=== PATIENT | male | born 1925 | race Caucasian/White ===

== ENCOUNTER 2016-07-31 00:30 | Emergency (ER) | payer MEDICARE, OTHER ==
[2016-07-31 00:55] LABS: ABSOLUTE NEUTROPHIL COUNT 2.2 K/mm3 (1.8-7.7); BASO % 0.6 % (0.2-1.0); EOS # 0.1 (0.0-0.5); EOS % 3.2 % (0.9-2.9); HEMATOCRIT 33.3 % (32.0-52.0); IMM NEUT% 0.3 % (0-1); LYMPH # 0.4 (1.0-4.8); MEAN CELL VOLUME 96.2 fl (80.0-94.0); MEAN CORPUSCULAR HEMOGLOBIN 31.8 pg (27.0-31.0); MEAN PLATELET VOLUME 9.3 fl (7.4-10.4); MONO # 0.5 (0.0-0.8); MONO % 14.6 % (4-12); NEUT % 68.3 % (43-75); PLATELET COUNT 110 K/mm3 (130-400); RED CELL DISTRIBUTION WIDTH 15.9 % (11.5-14.5)
[2016-07-31 01:20] LABS: TROPONIN I 0.03 ng/ml (0.0-0.06)
[2016-07-31 01:24] LABS: CKMB ISOENZYME 2.2 ng/ml (0.6-6.3)
[2016-07-31] MEDS ORDERED: DILTIAZEM HCL 5 MG/ML 5ML VIAL IV ONE (01:31)
[2016-07-31 02:37] LABS: SPECIFIC GRAVITY 1.015 (1.001-1.030); URINE APPEARANCE CLEAR; URINE BILIRUBIN NEGATIVE (NEGATIVE); URINE BLOOD NEGATIVE (NEGATIVE); URINE COLOR YELLOW; URINE GLUCOSE (UA) NEGATIVE (NEGATIVE); URINE LEUKOCYTE ESTERASE NEGATIVE (NEGATIVE); URINE NITRITE NEGATIVE (NEGATIVE); URINE PROTEIN NEGATIVE (NEGATIVE); URINE UROBILINOGEN NORMAL (0-1 mg/dl)
[2016-07-31 18:41] LABS: ALB/GLOB RATIO 1.1 (>1.0); CALCIUM 8.7 mg/dL (8.6-10.3)
== END 2016-07-31 05:09 | disposition home or self-care (01) ==
LOC: ED 00:30
DX: R42 Dizziness and giddiness (principal); I48.92 Unspecified atrial flutter; I50.9 Heart failure, unspecified; I10 Essential (primary) hypertension; Z79.01 Long term (current) use of anticoagulants

== ENCOUNTER 2016-09-12 10:40 | Inpatient (IN) | payer MEDICARE, OTHER ==
[2016-09-12] MEDS ORDERED: IOPAMIDOL 370 (76%) 100 ML VIAL IV ONE (10:41)
[2016-09-12] MEDS ORDERED: ONDANSETRON 4 MG/2ML 2 ML VIAL ONE (11:53)
[2016-09-12] MEDS ORDERED: SODIUM CHLORIDE 0.9% 500 ML ONE ×2 (11:53→13:31)
[2016-09-12 12:43] LABS: ABSOLUTE NEUTROPHIL COUNT 3.3 K/mm3 (1.8-7.7); BASO % 0.2 % (0.2-1.0); EOS % 0.7 % (0.9-2.9); HEMATOCRIT 33.4 % (32.0-52.0); HEMOGLOBIN 11.3 gm/l (14.0-18.0); LYMPH # 0.5 (1.0-4.8); MEAN CELL VOLUME 98.8 fl (80.0-94.0); MEAN CORPUSCULAR HEMOGLOBIN 33.4 pg (27.0-31.0); MEAN CORPUSCULAR HGB CONC 33.8 g/dl (33.0-37.0); MEAN PLATELET VOLUME 9.4 fl (7.4-10.4); MONO # 0.5 (0.0-0.8); MONO % 10.5 % (4-12); NEUT % 77.6 % (43-75); PLATELET COUNT 123 K/mm3 (130-400); RED CELL DISTRIBUTION WIDTH 15.7 % (11.5-14.5)
[2016-09-12 12:51] LABS: ALB/GLOB RATIO 1.1 (>1.0); ALBUMIN 3.6 gm/dL (3.5-5.7); CALCIUM 8.5 mg/dL (8.6-10.3)
[2016-09-12] MEDS ORDERED: MORPHINE SULFATE 2 MG/ML SYRINGE ONE (13:31)
[2016-09-12 14:14] LABS: PARTIAL THROMBOPLASTIN TIME 37.4 SECONDS (24.5-33.0); PROTHROMBIN TIME 66.8 SECONDS (9.3-11.4)
[2016-09-12 14:15] LABS: INR 5.8
--- NOTE | 2016-09-12 14:28 | CT ---
ABD/PELVIS W/ CON COMPARISON: Abdomen one view, 02/17/2015 HISTORY: 89-year-old male with 2 days right mid abdominal pain and nausea. No bowel movement for 3 days. Multiple bowel surgeries including resection for cancer, cholecystectomy, and bowel obstruction. Technique: No oral contrast. Intravenous injection 100 mL Isovue 370. Using a [employer] Aquilion [address] scanner, images were obtained from the diaphragm to the floor the pelvis. An automated dose reduction technique was used to minimize patient radiation dose. Dose information: CTDIvol (mGy): 8.60 DLP(mGycm): 408.00 FINDINGS: Lung bases: Bilateral basilar thick calcified pleural plaques. Mild right pleural effusion. Consolidation, medial and posterior segments of the right lower lobe, with air bronchograms. Inferior mediastinum and heart: Severe mitral annular calcification without cardiomegaly. Dilated fluid-filled distal esophagus. Liver: Normal. Gallbladder: Cholecystectomy. Bile ducts: Normal. Pancreas: Marked atrophy. Spleen: Normal. Adrenal glands: Normal. Kidneys: Normal enhancement. No polynephritis.. No hydronephrosis. Bilateral vascular calcifications. Ureters: Normal Urinary bladder: Moderately distended. Prostate gland and seminal vesicles: Normal. Blood vessels: Severe atherosclerosis of the aorta and its branches in the abdomen and the pelvis. Lymph nodes: Normal Stomach: Fluid-filled. Duodenum: Distended fluid-filled. Small intestine: Dilated, up to 3.8 cm, and fluid-filled. Anastomosis dilated with the right-sided colon in the right upper quadrant. Appendix: Removed. Colon: Cecum is been removed. Abdominal wall and supporting musculature: Normal Bones: Severe degenerative changes at L3-4, mild in the region of the spine. IMPRESSION: 1. Small bowel obstruction without recognized transition zone, diameter 3.8 cm. Surgical anastomosis between the terminal ileum and the right-sided colon is intact, in the right upper quadrant. 2. Incidental findings include cholecystectomy, mitral annular calcification, dilated fluid-filled distal esophagus, cholecystectomy, atrophy of the pancreas. The results were discussed with Marion Browning MD 09/12/2016 at 14:25
[2016-09-12] MEDS ORDERED: LIDOCAINE 2% UROJECT 10 ML ONE (15:08)
[2016-09-12 15:37] LABS: SPECIFIC GRAVITY 1.015 (1.001-1.030); URINE BILIRUBIN NEGATIVE (NEGATIVE); URINE BLOOD NEGATIVE (NEGATIVE); URINE GLUCOSE (UA) NEGATIVE (NEGATIVE); URINE LEUKOCYTE ESTERASE NEGATIVE (NEGATIVE); URINE NITRITE NEGATIVE (NEGATIVE); URINE PROTEIN NEGATIVE (NEGATIVE); URINE UROBILINOGEN 4 mg/dL (0-1 mg/dl)
[2016-09-12 15:38] LABS: URINE APPEARANCE CLEAR; URINE COLOR DARK YELLOW
[2016-09-12 16:14] VITALS: BMI 21.4
[2016-09-12] MEDS ORDERED: MAGNESIUM HYDROXIDE 30 ML UDCUP PO PRN (16:16)
[2016-09-12] MEDS ORDERED: BISACODYL 10 MG SUP PR PRN (16:16)
[2016-09-12] MEDS ORDERED: MENTHOL/CETYLPYRD 1 EACH LOZENGE PO PRN (16:16)
[2016-09-12] MEDS ORDERED: SODIUM CHLORIDE 0.9% 100 ML IV PRN (16:16)
[2016-09-12] MEDS ORDERED: ONDANSETRON 4 MG/2ML 2 ML VIAL IV PRN (16:16)
[2016-09-12] MEDS ORDERED: ACETAMINOPHEN 650 MG SUP PR PRN (16:16)
[2016-09-12] MEDS ORDERED: BISACODYL 5 MG TABLET.EC PO PRN (16:16)
[2016-09-12] MEDS ORDERED: HYDROMORPHONE HCL 2 MG/ML SYRINGE IV PRN (16:16)
[2016-09-12] MEDS ORDERED: BLISTEX LIPSTICK 1 EACH TP PRN (16:16)
[2016-09-12] MEDS ORDERED: PUMP TUBING ONE (17:15)
[2016-09-12] MEDS: PANTOPRAZOLE SODIUM 40 MG VIAL IV SCH (17:25)
[2016-09-12] MEDS: HYDROMORPHONE HCL 0.5 MG/0.5 ML SYRINGE IV PRN (17:26)
[2016-09-12] MEDS: D5 1/2NS with 20 mEq KCL 1,000 ML IV SCH (17:26)
--- NOTE | 2016-09-12 18:39 | HP ---
NAPOLEON BOOTH [id number] DATE OF ADMISSION: 09/12/2016 CHIEF COMPLAINT: Abdominal pain, nausea and vomiting. 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 His last bowel movement was about three days ago. He tried using a suppository yesterday, but this was not helpful. His abdominal pain persisted and he presented to the emergency department for further evaluation where CT images showed evidence of a small bowel obstruction. He was treated with a nasogastric tube and referred to the Hospitalist Service for admission. A surgical consultation was obtained in the emergency department. REVIEW OF SYSTEMS: Negative for any recent fevers or chills. He denies any upper respiratory symptoms, cough, dyspnea, wheezing, chest pain, shortness of breath or palpitations. He reports diffuse abdominal pain up to eight out of ten. He denies any nausea after the nasogastric tube was placed. He denies any arthralgias, headaches, fainting, blackouts, seizures or urinary complaints. His review of systems is otherwise negative. PAST MEDICAL HISTORY: Significant for: 1. Coronary artery disease, status post bypass, without angina. 2. He has had a history of aortic stenosis, status post tissue prosthesis. 3. He has chronic atrial fibrillation, on Coumadin. 4. He has a history of gastroesophageal reflux disease with Cole's metaplasia. 5. Chronic essential hypertension. 6. Alcoholism, in remission since 2001. 7. Lumbar spondylosis. 8. Migraine headaches. 9. Peripheral vascular disease. 10. Asbestosis. 11. He has macular degeneration, with blindness. PAST SURGICAL HISTORY: 1. He had cataract surgery in 1996. 2. He had a tonsillectomy and adenoidectomy as a child. 3. He had the aortic valve replacement with a tissue valve in 2011, along with a two-vessel coronary artery bypass graft. 4. He had an appendectomy years ago. 5. He had a partial colectomy in 1993 for colon cancer. 6. He has had a vasectomy. 7. He had Janis fundoplication in 2011. 8. He had an open cholecystectomy in August of 2014. ALLERGIES: No known drug allergies. MEDICATIONS: Consist of: 1. Potassium chloride 20 mEq daily. 2. Warfarin 4.5 mg every day. 3. Remeron 15 mg at bedtime. 4. He does take Senna occasionally for constipation, but not regularly. 5. He takes Prilosec 20 mg daily. 6. A multivitamin once daily. 7. Guffey 10/325 three times daily as needed for pain. 8. Lasix 100 mg daily. 9. Colace 100 mg twice daily. 10. Cardizem CD 240 mg daily. 11. B-complex with vitamin B-12 once daily. FAMILY HISTORY: Significant for diabetes. SOCIAL HISTORY: He is a former smoker after a 32-pcoo-odld history of smoking. He quit 20 years ago. He was an alcoholic, but quit in 2001. He is . 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 PRIMARY CARE PROVIDER: Carolee Allen, Physician Contract Coordinator. PHYSICAL EXAMINATION: VITAL SIGNS: His temperature is 98.6. Pulse 89. Blood pressure 133/58. Respirations 16. Oxygen saturations are 94% on one liter, but 85% on room air. No chest x-ray was performed in the emergency department. Body mass index is 21.4. Weight is 65.7 kilograms. GENERAL: This is a thin elderly male in no acute distress. HEENT: Shows moist pink oral mucosa. LUNGS: Slightly diminished throughout, otherwise clear. CARDIOVASCULAR: Reveals an irregular rhythm, normal rate. No murmur. ABDOMEN: Soft and slightly distended, with hypoactive bowel sounds. Diffuse discomfort. No guarding or focal tenderness. GENITOURINARY: Exam is deferred. RECTAL: Exam is deferred. EXTREMITIES: Showed no peripheral edema. Diminished peripheral pulses, estimated at 1+ in both feet in the dorsalis pedis arteries. SKIN: Warm, dry and intact. DIAGNOSTIC IMAGING STUDIES: CT of the abdomen and pelvis showed evidence of a small bowel obstruction with a transition point in the right upper quadrant. LABS: CBC showed a white count of 4.3, hemoglobin 11.3 and a platelet count of 123,000. INR is supratherapeutic at 5.80. Lactate is normal at 0.8. Chemistry profile showed a sodium of 135, potassium 3.8, carbon dioxide of 26, BUN is 51, creatinine is 1.5, glucose is 127 and lipase is 11. Urinalysis is unremarkable. ASSESSMENT: 1. The patient has a small bowel obstruction and he has generalized abdominal pain, nausea and vomiting as a result. 2. He may have mild dehydration, causing acute kidney injury. 3. He may have a little bit of chronic kidney disease. His last creatinine was elevated at 1.2 and is now up to 1.5. 4. He has a history of a prosthetic aortic valve, and this appears to be stable. 5. He has some nausea and vomiting, improved with the NG tube. 6. He has chronic atrial fibrillation, rate controlled on diltiazem, anticoagulated on Coumadin, with a supratherapeutic level. 7. He has chronic essential hypertension, well-controlled. 8. He has macular degeneration, with blindness. PLAN: He is admitted to the Med-Surg unit for bowel rest, IV fluids and nasogastric decompression. I am going to hold his Coumadin and recheck his INR in the morning. We will have him on telemetry, and if he becomes tachycardiac he may require IV Cardizem while he is NPO. Further treatment and recommendations will depend on his hospital course. VTE risk is moderate and he is adequately anticoagulated on the Coumadin. I do not plan to reverse this, but will hold his Coumadin until his INR is less than 3. cc: ABRAM Torres, PATaryn
[2016-09-12] MEDS: DOCUSATE SODIUM 100 MG CAPSULE PO SCH (20:39)
--- NOTE | 2016-09-12 21:02 | RAD ---
09/12/2016 8:57 PM CHEST - 2 VIEWS History: Hypoxia, small bowel obstruction. Comparison: 02/13/2016 Findings: Two views of the chest are obtained. The lungs demonstrate patchy airspace disease predominantly at the left base. The pleural plaques are again noted. Small right effusion is also present, as seen on CT earlier on the same day. The cardiomediastinal silhouette is unremarkable.. The osseous structures are intact.. Median sternotomy wires are present. Prosthetic valve annulus is again seen. Nasogastric tube terminates at the level of the epigastrium. IMPRESSION: Patchy airspace disease at the left base worrisome for pneumonia. Right-sided effusion. Other stable findings as above
[2016-09-12] MEDS ORDERED: IV START KIT ONE (23:40)
[2016-09-12] MEDS ORDERED: SODIUM CHLORIDE 0.9% FLUSH 10 ML ONE (23:40)
[2016-09-13] MEDS: HYDROMORPHONE HCL 1 MG/ML SYRINGE IV PRN ×5 (00:12→23:11)
[2016-09-13] MEDS ORDERED: PUMP TUBING ONE (02:03)
[2016-09-13] MEDS: D5 1/2NS with 20 mEq KCL 1,000 ML IV SCH ×3 (02:11→18:30)
[2016-09-13] MEDS: HYDROMORPHONE HCL 0.5 MG/0.5 ML SYRINGE IV PRN ×2 (05:06→20:36)
[2016-09-13 06:47] LABS: ABSOLUTE NEUTROPHIL COUNT 4.5 K/mm3 (1.8-7.7); BASO % 0.2 % (0.2-1.0); HEMATOCRIT 29.5 % (32.0-52.0); HEMOGLOBIN 9.7 gm/l (14.0-18.0); IMM NEUT% 0.4 % (0-1); LYMPH # 0.3 (1.0-4.8); MEAN CELL VOLUME 99.7 fl (80.0-94.0); MEAN CORPUSCULAR HEMOGLOBIN 32.8 pg (27.0-31.0); MEAN CORPUSCULAR HGB CONC 32.9 g/dl (33.0-37.0); MEAN PLATELET VOLUME 9.7 fl (7.4-10.4); MONO # 0.4 (0.0-0.8); MONO % 7.7 % (4-12); NEUT % 85.7 % (43-75); PLATELET COUNT 106 K/mm3 (130-400); RED CELL DISTRIBUTION WIDTH 16.1 % (11.5-14.5)
[2016-09-13 06:58] LABS: CALCIUM 7.6 mg/dL (8.6-10.3)
[2016-09-13 07:40] LABS: PROTHROMBIN TIME 105.5 SECONDS (9.3-11.4)
[2016-09-13 07:42] LABS: INR 9.38
[2016-09-13 09:11] LABS: BAND 35 % (0-10); BASOPHIL 1 % (0-1); EOSINOPHIL 0 % (1-3); LYMPHOCYTE 14 % (15-45); METAMYELOCYTE 8 %; MONOCYTE 6 % (4-12); NEUTROPHILS 36 % (43-75); PLATELET ESTIMATE DECREASED (NORMAL); TOTAL CELLS COUNTED 100
[2016-09-13] MEDS: DOCUSATE SODIUM 100 MG CAPSULE PO SCH ×2 (09:24→22:19)
[2016-09-13] MEDS: CEFTRIAXONE 1 GRAM DUPLEX 1 G in Premix (D5W) 50 ml 1 EACH IV SCH (10:04)
[2016-09-13] MEDS: AZITHROMYCIN 500 MG in SODIUM CHLORIDE 0.9% 250 ML IV SCH (10:39)
--- NOTE | 2016-09-13 12:13 | PDOC43 ---
- Subjective Chief Complaint: ileus Patient reports abd pain doing ok with NG and pain med. No flatus. Had noted some L arm discomfort, attributed to IV, and a red spot on the L lateral foot. Some cough noted, but not short of breath. Some sputum reported. - Objective Vital Signs Temperature 98.3 F 09/13/16 07:31 Pulse Rate 86 09/13/16 07:31 Respiratory Rate 18 09/13/16 07:44 Blood Pressure 100/50 09/13/16 07:31 O2 Saturation by Pulse Oximetry 95 09/13/16 07:31 Oxygen Delivery Method Nasal Cannula Oxygen Flow Rate 2 Vital Signs Last 12 Hours Temp Pulse Resp BP Pulse Ox 09/13/16 07:44 18 09/13/16 07:31 98.3 F 86 18 100/50 95 09/13/16 04:48 18 09/13/16 04:00 98.0 F 88 16 103/45 96 09/12/16 23:52 100 F 112 18 103/56 95 Intake and Output 09/11/16 09/12/16 09/13/16 23:59 23:59 23:59 Intake Total 1362 Output Total 430 980 Balance -430 382 Intake & Output 09/12/16 09/13/16 09/13/16 23:59 07:59 15:59 Intake Total 1362 Output Total 430 980 Balance -430 382 Weight 65.7 kg 64.7 kg 64.7 kg Intake: IV Fluids 1362 Output: Void 900 Emesis 300 NG/OG Output 130 40 Gastrostomy Tube Output 40 Tubes/Drains Output: Tubes and Drains Output NG/OG Output 40 NG/OG Output 130 Gastrostomy Tube Output 40 General: Alert, Cooperative, No Acute Distress Lungs: Clear to Auscultation Bilaterally (occasional), Other (occasional loose sounding cough) Cardiovascular: Regular Rate and Rhythm, Other (large well healed incision on midline chest) Abdomen: Soft, Hypoactive Bowel Sounds (only sound is NG tube. Not tender.), Non -Distended Extremities: Other (feet with onychomycosis, varicosities, but not bad for age, no pressure ulcer, no erythema, no changes.), No Edema Skin: Normal Color Neurological: Normal Speech Psych/Mental Status: Normal Affect, Other (appears to be fairly vigorous for age and hospital stay.) Laboratory 09/13/16 06:00 09/13/16 06:00 09/13/16 09/12/16 06:00 15:15 RBC 2.96 L MCV 99.7 H MCH 32.8 H MCHC 32.9 L RDW 16.1 H PT 105.5 H INR 9.38 H* D BUN 44 H Estimated GFR 48 L Calcium 7.6 L Urine Urobilinogen 4 mg/dl H Current Medications: Current meds reviewed in EMR. Active Medications Acetaminophen (Tylenol) 650 mg DC Q6H PRN PRN Reason: Pain or Temperature > 100.5 F Benzocaine/Menthol (Cepacol) 1 each PO PRN PRN PRN Reason: Sore Throat Bisacodyl (Dulcolax) 10 mg DC DAILY PRN PRN Reason: Constipation Bisacodyl (Dulcolax) 5 mg PO DAILY PRN PRN Reason: Constipation Docusate Sodium (Colace) 100 mg PO BID [facility] Last Admin: 09/13/16 09:24 Dose: Not Given Hydromorphone HCl (Dilaudid) 0.5 - 2 mg IV Q2H PRN PRN Reason: Pain Hydromorphone HCl (Dilaudid) 0.5 - 2 mg IV Q2H PRN PRN Reason: Pain Last Admin: 09/13/16 05:06 Dose: 0.5 mg Hydromorphone HCl (Dilaudid) 0.5 - 2 mg IV Q2H PRN PRN Reason: Pain Last Admin: 09/13/16 08:13 Dose: 1 mg Potassium Chloride/Dextrose/Sod Cl (D51/2ns With 20 Meq Kcl) 1,000 mls @ 125 mls/hr IV .Q8H [facility] Last Admin: 09/13/16 09:22 Dose: 125 mls/hr Sodium Chloride (Sodium Chloride 0.9%) 100 mls @ 25 mls/hr IV PRN PRN PRN Reason: Flush Azithromycin 500 mg/ Sodium (Chloride) 250 mls @ 250 mls/hr IV Q24H [facility] Stop: 09/15/16 08:59 Last Admin: 09/13/16 10:39 Dose: 250 mls/hr Ceftriaxone Sodium/Dextrose 1 (g/ Premix (D5W) 50 ml) 50 mls @ 100 mls/hr IV Q24H [facility] Last Admin: 09/13/16 10:04 Dose: 100 mls/hr Magnesium Hydroxide (Milk Of Magnesia) 30 ml PO DAILY PRN PRN Reason: Constipation Ondansetron HCl (Zofran) 4 mg IV Q4H PRN PRN Reason: Nausea/Vomiting Last Admin: 09/12/16 19:44 Dose: 4 mg Pantoprazole Sodium (Protonix) 40 mg IV Q24H [facility] Last Admin: 09/12/16 17:25 Dose: 40 mg Petrolatum/Paraffin/Mineral Oil (Blistex) 1 each TP PRN PRN PRN Reason: Dry and/or chapped lips Last Admin: 09/13/16 10:45 Dose: 1 tube Sodium Chloride (Normal Saline 10ml Flush) 10 ml IV Q8HR [facility] Last Admin: 09/13/16 09:24 Dose: Not Given Sodium Chloride (Normal Saline 10ml Flush) 10 ml IV PRN PRN Last Admin: 09/13/16 08:13 Dose: 10 ml - Problems: Assessment/Plan (1) Ileus Status: AcuteAssessment/Plan: Hx colon cancer 1993; partial colon resection. with ongoing SBO, no flatus. Continue NG (output 130+40 so far). Plan check KUB (2) Over-anticoagulated Status: AcuteAssessment/Plan: Due to warfarin combined with acute illness/not eating. Antibiotics may also contribute. INR 5.8->9.3 today; no bleeding so far, but will anticipate small Vit K dose since still not eating. (3) Pneumonia Qualifiers: Pneumonia type: due to unspecified organism Status: AcuteAssessment/Plan : On Rocephin, azithromycin. No cultures available. (4) Aortic valve replaced Status: ChronicAssessment/Plan: Tissue valve, 2011. Auscultation sounds unremarkable today. (5) Atrial fibrillation Qualifiers: Atrial fibrillation type: chronic Qualifier Code: (I48.2) Chronic atrial fibrillation Status: ChronicAssessment/Plan: On warfarin, currently over anticoagulated (and holding warfarin). Rate controlled. (6) Macular degeneration (senile) of retina Status: ChronicAssessment/Plan: with impaired vision VTE Prophylaxis: has been on warfarin, currently over anticoagulated. Mechanical tx Disposition: to be determined; anticipate return to home (with daughter).
[2016-09-13] MEDS ORDERED: PHYTONADIONE 10 MG/1 ML AMP SUB-Q ONE (12:30)
[2016-09-13] MEDS: PANTOPRAZOLE SODIUM 40 MG VIAL IV SCH (17:06)
[2016-09-14] MEDS: HYDROMORPHONE HCL 1 MG/ML SYRINGE IV PRN ×4 (02:28→22:56)
[2016-09-14] MEDS: D5 1/2NS with 20 mEq KCL 1,000 ML IV SCH ×3 (02:28→18:21)
[2016-09-14 06:08] LABS: ABSOLUTE NEUTROPHIL COUNT 1.3 K/mm3 (1.8-7.7); BASO % 0.5 % (0.2-1.0); EOS # 0.1 (0.0-0.5); EOS % 2.9 % (0.9-2.9); HEMATOCRIT 29.9 % (32.0-52.0); HEMOGLOBIN 9.9 gm/l (14.0-18.0); IMM NEUT% 0.5 % (0-1); LYMPH # 0.4 (1.0-4.8); LYMPH % 19.7 % (15-45); MEAN CORPUSCULAR HEMOGLOBIN 33.4 pg (27.0-31.0); MEAN CORPUSCULAR HGB CONC 33.1 g/dl (33.0-37.0); MEAN PLATELET VOLUME 10.1 fl (7.4-10.4); MONO # 0.3 (0.0-0.8); MONO % 12.5 % (4-12); NEUT % 63.9 % (43-75); PLATELET COUNT 102 K/mm3 (130-400); RED CELL DISTRIBUTION WIDTH 16.2 % (11.5-14.5)
[2016-09-14 06:30] LABS: INR 2.26; PROTHROMBIN TIME 24.8 SECONDS (9.3-11.4)
[2016-09-14 06:42] LABS: BAND 0 % (0-10); LYMPHOCYTE 26 % (15-45); MONOCYTE 6 % (4-12); NEUTROPHILS 68 % (43-75); TOTAL CELLS COUNTED 100
[2016-09-14 06:43] LABS: BASOPHIL 0 % (0-1); EOSINOPHIL 0 % (1-3); PLATELET ESTIMATE DECREASED (NORMAL)
[2016-09-14] MEDS: AZITHROMYCIN 500 MG in SODIUM CHLORIDE 0.9% 250 ML IV SCH (07:49)
--- NOTE | 2016-09-14 08:38 | PDOC43 ---
- Subjective Chief Complaint: ileus Pt reports main complaint is irritation from NG. Stomach feeling better, passed some flatus, had BM late yesterday. Breathing ok, RN reports pt still desats to upper 80s on RA this am. Tolerated some activity. No new c/o. - Objective Vital Signs Temperature 97.2 F 09/14/16 07:39 Pulse Rate 81 09/14/16 07:39 Respiratory Rate 16 09/14/16 07:39 Blood Pressure 149/64 09/14/16 07:39 O2 Saturation by Pulse Oximetry 100 09/14/16 07:39 Oxygen Delivery Method Nasal Cannula Oxygen Flow Rate 2 Vital Signs Last 12 Hours Temp Pulse Resp BP Pulse Ox 09/14/16 07:39 97.2 F 81 16 149/64 100 09/14/16 05:18 88 85 09/14/16 04:12 97.6 F 87 16 126/50 94 09/14/16 02:30 16 09/13/16 23:12 97.7 F 88 16 124/54 95 09/13/16 20:30 16 Intake and Output 09/12/16 09/13/16 09/14/16 23:59 23:59 23:59 Intake Total 3447 1407 Output Total 430 980 675 Balance -430 2467 732 Tubes/Drains Output: Tubes and Drains Output NG/OG Output 125 General: Alert (does well for being woken up this am.), Cooperative, Mild Distress (reports worried about his daughter, hosp at [facility] with some inoperable condition.) Lungs: Clear to Auscultation Bilaterally (fairly good air movement bilat.) Cardiovascular: Regular Rate and Rhythm (generally RRR.) Abdomen: Soft, Normal Bowel Sounds (bowel sounds good, not metallic, not hyperactive), Non-Distended, No Tenderness Extremities: No Edema Neurological: Normal Speech Psych/Mental Status: Other (seems a little tired, but just woke up.) Laboratory 09/14/16 05:30 09/14/16 05:30 RBC 2.96 L MCV 101.0 H MCH 33.4 H RDW 16.2 H PT 24.8 H Current Medications: Current meds reviewed in EMR. Active Medications Acetaminophen (Tylenol) 650 mg AK Q6H PRN PRN Reason: Pain or Temperature > 100.5 F Benzocaine/Menthol (Cepacol) 1 each PO PRN PRN PRN Reason: Sore Throat Bisacodyl (Dulcolax) 10 mg AK DAILY PRN PRN Reason: Constipation Last Admin: 09/13/16 17:07 Dose: 10 mg Bisacodyl (Dulcolax) 5 mg PO DAILY PRN PRN Reason: Constipation Docusate Sodium (Colace) 100 mg PO BID [facility] Last Admin: 09/13/16 22:19 Dose: Not Given Hydromorphone HCl (Dilaudid) 0.5 - 2 mg IV Q2H PRN PRN Reason: Pain Hydromorphone HCl (Dilaudid) 0.5 - 2 mg IV Q2H PRN PRN Reason: Pain Last Admin: 09/13/16 20:36 Dose: 0.5 mg Hydromorphone HCl (Dilaudid) 0.5 - 2 mg IV Q2H PRN PRN Reason: Pain Last Admin: 09/14/16 07:47 Dose: 1 mg Potassium Chloride/Dextrose/Sod Cl (D51/2ns With 20 Meq Kcl) 1,000 mls @ 125 mls/hr IV .Q8H [facility] Last Admin: 09/14/16 02:28 Dose: 125 mls/hr Sodium Chloride (Sodium Chloride 0.9%) 100 mls @ 25 mls/hr IV PRN PRN PRN Reason: Flush Azithromycin 500 mg/ Sodium (Chloride) 250 mls @ 250 mls/hr IV Q24H [facility] Stop: 09/15/16 08:59 Last Admin: 09/14/16 07:49 Dose: 250 mls/hr Ceftriaxone Sodium/Dextrose 1 (g/ Premix (D5W) 50 ml) 50 mls @ 100 mls/hr IV Q24H [facility] Last Admin: 09/13/16 10:04 Dose: 100 mls/hr Magnesium Hydroxide (Milk Of Magnesia) 30 ml PO DAILY PRN PRN Reason: Constipation Ondansetron HCl (Zofran) 4 mg IV Q4H PRN PRN Reason: Nausea/Vomiting Last Admin: 09/12/16 19:44 Dose: 4 mg Pantoprazole Sodium (Protonix) 40 mg IV Q24H [facility] Last Admin: 09/13/16 17:06 Dose: 40 mg Petrolatum/Paraffin/Mineral Oil (Blistex) 1 each TP PRN PRN PRN Reason: Dry and/or chapped lips Last Admin: 09/13/16 10:45 Dose: 1 tube Sodium Chloride (Normal Saline 10ml Flush) 10 ml IV Q8HR [facility] Last Admin: 09/14/16 01:34 Dose: Not Given Sodium Chloride (Normal Saline 10ml Flush) 10 ml IV PRN PRN Last Admin: 09/13/16 08:13 Dose: 10 ml - Problems: Assessment/Plan (1) Ileus Status: AcuteAssessment/Plan: Hx colon cancer 1993; partial colon resection. with ongoing SBO, no flatus. Continue NG (output 125 this last shift). Plan clamp NG, remove later today, clears for dinner if does well. (2) Over-anticoagulated Status: AcuteAssessment/Plan: Due to warfarin combined with acute illness/not eating. Antibiotics may also contribute. INR 5.8->9.3 -> 2.26 after small Vit K dose (3) Pneumonia Qualifiers: Pneumonia type: due to unspecified organism Laterality: left Lung location: lower lobe of lung Qualifier Code: (J18.1) Lobar pneumonia, unspecified organism Status: AcuteAssessment/Plan: On Rocephin, azithromycin. No cultures available. Still with some hypoxia reported , continue on O2, encourage activity, check CXR. (4) Aortic valve replaced Status: ChronicAssessment/Plan: Tissue valve, 2011. Auscultation sounds unremarkable today. (5) Atrial fibrillation Qualifiers: Atrial fibrillation type: chronic Qualifier Code: (I48.2) Chronic atrial fibrillation Status: ChronicAssessment/Plan: On warfarin, anticoagulated (was holding warfarin) - consider resumption when taking PO. Rate controlled,. (6) Macular degeneration (senile) of retina Status: ChronicAssessment/Plan: with impaired vision. (7) Pancytopenia Status: SuspectedAssessment/Plan: anemia continues, stable from yesterday. Platelets trending down slightly. Not on heparin. WBC dropped some. Will recheck in am. VTE Prophylaxis: has been on warfarin, anticipate resumption warfarin when taking PO. If prolonged NPO, would consider enoxaparin Mechanical tx Disposition: to be determined; anticipate return to home (with granddaughter), in the next 1- 3 days.
[2016-09-14] MEDS ORDERED: WARFARIN PER PHARMACY 1 EACH DOSE PO SCH (09:30)
[2016-09-14] MEDS ORDERED: SENNOSIDES 8.6 MG TABLET PO PRN (09:50)
--- NOTE | 2016-09-14 10:03 | RAD ---
ABDOMEN OR KUB COMPARISON: CT abdomen and pelvis with contrast, 09/12/2016 at 13:52 HISTORY: Follow-up ileus versus small bowel obstruction. FINDINGS: View: Supine abdomen. Support equipment: NG tube tip below the left hemidiaphragm. Bowel gas pattern: Nonspecific. Organomegaly: None. Soft tissue calcification: Vascular in the left upper quadrant and the pelvis. Surgical clips: Right upper quadrant. Throughout the abdomen Bones: Degenerative changes of the spine. Bladder: There is contrast enhanced urine within the bladder lumen, from the recent CT scan injection IMPRESSION: 1. Improved bowel gas pattern, no longer suspicious for obstruction or ileus. 2. Expected position of the tip of the NG tube below the left hemidiaphragm. 3. Atherosclerosis of the splenic artery. 4. Spondylosis of the lumbar spine.
--- NOTE | 2016-09-14 10:04 | RAD ---
ABDOMEN ONE VIEW HISTORY: Follow-up ileus. Supine abdominal radiograph acquired. COMPARISON: 09/13/2016 FINDINGS: BOWEL GAS PATTERN: Mild interval increase in small bowel distention over the interval, maximal caliber now 5.3 cm in size. ABDOMINOPELVIC CALCIFICATIONS: No abnormal calcifications noted. OSSEOUS STRUCTURES: Evidence of lumbar spondylosis. POSTSURGICAL CHANGE: Evidence of cholecystectomy. TUBING: Previously noted gastric tubing is not seen. IMPRESSION: Progressive small bowel dilatation, ileus and worsening obstruction are possible. Nonvisualization of previously noted gastric tubing.
[2016-09-14] MEDS: CEFTRIAXONE 1 GRAM DUPLEX 1 G in Premix (D5W) 50 ml 1 EACH IV SCH (10:30)
[2016-09-14] MEDS: DOCUSATE SODIUM 100 MG CAPSULE PO SCH ×2 (10:36→20:24)
[2016-09-14] MEDS: DILTIAZEM HCL CD 240 MG CAPSULE PO SCH (10:37)
--- NOTE | 2016-09-14 10:49 | RAD ---
PORTABLE CHEST RADIOGRAPH HISTORY: Recheck pneumonia. Frontal portable chest radiograph dated 09/14/2016. COMPARISON: 09/12/2016 FINDINGS: FOCAL AIRSPACE OPACITY: Redemonstration of left basilar airspace opacity with increase in right basilar airspace opacity over the interval. PLEURAL EFFUSION: Small right pleural effusion, mildly increased over the interval. Pleural calcifications are identified bilaterally. CARDIOMEDIASTINAL SILHOUETTE: Nonenlarged. Aortic arch calcification. Gastric tubing identified, tip just beyond the diaphragm PNEUMOTHORAX: None identified. OSSEOUS STRUCTURES: Poststernotomy change. IMPRESSION: Progressive bibasilar airspace opacity worrisome for pneumonia with right-sided pleural effusion. Gastric tubing seen just beyond the diaphragm. Pleural calcifications compatible with prior asbestos exposure. Poststernotomy change.
[2016-09-14 11:54] LABS: ALB/GLOB RATIO 1.1 (>1.0); ALBUMIN 3.2 gm/dL (3.5-5.7); CALCIUM 7.9 mg/dL (8.6-10.3)
[2016-09-14] MEDS ORDERED: BISACODYL 10 MG SUP PR ONE (12:44)
[2016-09-14] MEDS: WARFARIN SODIUM 2 MG TABLET PO SCH (16:28)
[2016-09-14] MEDS: PANTOPRAZOLE SODIUM 40 MG VIAL IV SCH (16:29)
[2016-09-14] MEDS: MIRTAZAPINE 15 MG TABLET PO SCH (20:24)
[2016-09-15] MEDS: D5 1/2NS with 20 mEq KCL 1,000 ML IV SCH (02:21)
[2016-09-15] MEDS: HYDROMORPHONE HCL 1 MG/ML SYRINGE IV PRN (03:58)
[2016-09-15 05:55] LABS: ABSOLUTE NEUTROPHIL COUNT 1.5 K/mm3 (1.8-7.7); BASO % 0.4 % (0.2-1.0); EOS # 0.1 (0.0-0.5); EOS % 5.2 % (0.9-2.9); HEMATOCRIT 30.4 % (32.0-52.0); HEMOGLOBIN 9.8 gm/l (14.0-18.0); IMM NEUT% 0.9 % (0-1); LYMPH # 0.4 (1.0-4.8); LYMPH % 17.3 % (15-45); MEAN CELL VOLUME 103.4 fl (80.0-94.0); MEAN CORPUSCULAR HEMOGLOBIN 33.3 pg (27.0-31.0); MEAN CORPUSCULAR HGB CONC 32.2 g/dl (33.0-37.0); MEAN PLATELET VOLUME 9.9 fl (7.4-10.4); MONO # 0.3 (0.0-0.8); MONO % 12.6 % (4-12); NEUT % 63.6 % (43-75); PLATELET COUNT 99 K/mm3 (130-400); RED CELL DISTRIBUTION WIDTH 15.9 % (11.5-14.5)
[2016-09-15 06:13] LABS: INR 1.23
[2016-09-15 06:21] LABS: ALBUMIN 2.9 gm/dL (3.5-5.7); CALCIUM 7.9 mg/dL (8.6-10.3)
[2016-09-15] MEDS: AZITHROMYCIN 500 MG in SODIUM CHLORIDE 0.9% 250 ML IV SCH (07:42)
[2016-09-15] MEDS: FUROSEMIDE 40 MG TABLET PO SCH (08:48)
--- NOTE | 2016-09-15 08:48 | RAD ---
Name: NAPOLEON BOOTH Exam: Single view abdomen Comparison: 09/14/2016 Clinical history: Small bowel obstruction Findings: Single view of the abdomen is submitted. There is a small right pleural effusion. Surgical clips are noted in the right upper quadrant. Dense vascular calcifications present. There is air in small bowel and stomach. Minimal colonic air is present. Small bowel loops measure up to 4.5 cm in diameter. Although colonic air is decreased when compared the prior, small bowel dilation is diminished as well. Impression: 1. Diffuse small bowel dilation with air with slight improvement. Differential considerations remain a small bowel obstruction and ileus. 2. Small right pleural effusion
[2016-09-15] MEDS ORDERED: SODIUM CHLORIDE 0.9% FLUSH 10 ML ONE (08:50)
[2016-09-15] MEDS ORDERED: IV START KIT ONE (08:50)
[2016-09-15] MEDS ORDERED: PANTOPRAZOLE 40 MG TABLET DR PO SCH (09:00)
[2016-09-15] MEDS: CEFTRIAXONE 1 GRAM DUPLEX 1 G in Premix (D5W) 50 ml 1 EACH IV SCH (09:37)
[2016-09-15] MEDS: DILTIAZEM HCL CD 240 MG CAPSULE PO SCH (09:37)
[2016-09-15] MEDS: DOCUSATE SODIUM 100 MG CAPSULE PO SCH ×2 (09:39→20:50)
[2016-09-15] MEDS: HYDROCODONE BIT/ACETAMINOPHEN 10 MG/325 MG TAB PO PRN ×2 (10:06→18:31)
[2016-09-15] MEDS: POTASSIUM CHLORIDE 20 MEQ TAB.PRT.SR PO SCH (10:06)
--- NOTE | 2016-09-15 15:56 | PDOC43 ---
- Subjective Chief Complaint: ileus Patient had reported abd discomfort, low eating earlier today. Pt reports no BM today, some ongoing abd discomfort. A little short of breath noted. Did get to walk a little. Only had clears, not really hungry. He reports still feeling like there is a lot of fluid in the upper abdomen. Passed a small amount of flatus today. - Objective Vital Signs Temperature 97.9 F 09/15/16 11:35 Pulse Rate 65 09/15/16 11:35 Respiratory Rate 18 09/15/16 11:35 Blood Pressure 120/61 09/15/16 11:35 O2 Saturation by Pulse Oximetry 97 09/15/16 11:35 Oxygen Delivery Method Nasal Cannula Oxygen Flow Rate 2 Vital Signs Last 12 Hours Temp Pulse Resp BP Pulse Ox 09/15/16 11:35 97.9 F 65 18 120/61 97 09/15/16 07:54 95 09/15/16 07:52 65 89 09/15/16 07:46 94 09/15/16 07:36 97.8 F 62 17 116/61 95 09/15/16 04:00 97.8 F 66 20 127/56 93 Intake and Output 09/13/16 09/14/16 09/15/16 23:59 23:59 23:59 Intake Total 3447 3281 2505 Output Total 980 1075 2050 Balance 2467 2206 455 General: Alert, Other (appears sl uncomfortable) Lungs: Clear to Auscultation Bilaterally (but decreased at bases) Cardiovascular: Regular Rate and Rhythm Abdomen: Soft, Normal Bowel Sounds, Mild Distention, Other (Sl tender RUQ) Extremities: No Edema Neurological: Normal Speech Psych/Mental Status: Other (sl uncomfortable) Laboratory 09/15/16 05:30 09/15/16 05:30 09/15/16 05:30 RBC 2.94 L MCV 103.4 H MCH 33.3 H MCHC 32.2 L RDW 15.9 H PT 13.0 H Anion Gap 7 L Estimated GFR 79 H Calcium 7.9 L Total Bilirubin 1.1 H Total Protein 5.9 L Albumin 2.9 L Current Medications: Current meds reviewed in EMR. Active Medications Acetaminophen (Tylenol) 650 mg LA Q6H PRN PRN Reason: Pain or Temperature > 100.5 F Acetaminophen/Hydrocodone Bitart ([place] 10/325) 1 tab PO TID PRN PRN Reason: .pain Last Admin: 09/15/16 10:06 Dose: 1 tab Benzocaine/Menthol (Cepacol) 1 each PO PRN PRN PRN Reason: Sore Throat Bisacodyl (Dulcolax) 10 mg LA DAILY PRN PRN Reason: Constipation Last Admin: 09/13/16 17:07 Dose: 10 mg Bisacodyl (Dulcolax) 5 mg PO DAILY PRN PRN Reason: Constipation Diltiazem HCl (Cardizem Cd) 240 mg PO DAILY [facility] Last Admin: 09/15/16 09:37 Dose: 240 mg Docusate Sodium (Colace) 100 mg PO BID [facility] Last Admin: 09/15/16 09:39 Dose: 100 mg Furosemide (Lasix) 100 mg PO QAM [facility] Last Admin: 09/15/16 08:48 Dose: 100 mg Hydromorphone HCl (Dilaudid) 0.5 - 2 mg IV Q2H PRN PRN Reason: Pain Sodium Chloride (Sodium Chloride 0.9%) 100 mls @ 25 mls/hr IV PRN PRN PRN Reason: Flush Ceftriaxone Sodium/Dextrose 1 (g/ Premix (D5W) 50 ml) 50 mls @ 100 mls/hr IV Q24H [facility] Last Admin: 09/15/16 09:37 Dose: 100 mls/hr Magnesium Hydroxide (Milk Of Magnesia) 30 ml PO DAILY PRN PRN Reason: Constipation Mirtazapine (Remeron) 15 mg PO BEDTIME [facility] Last Admin: 09/14/16 20:24 Dose: 15 mg Miscellaneous (Coumadin Per Pharmacy) 1 each PO PERPHARMACY [facility] Ondansetron HCl (Zofran) 4 mg IV Q4H PRN PRN Reason: Nausea/Vomiting Last Admin: 09/12/16 19:44 Dose: 4 mg Pantoprazole Sodium (Protonix) 40 mg PO DAILY [facility] Last Admin: 09/15/16 08:47 Dose: 40 mg Petrolatum/Paraffin/Mineral Oil (Blistex) 1 each TP PRN PRN PRN Reason: Dry and/or chapped lips Last Admin: 09/13/16 10:45 Dose: 1 tube Potassium Chloride (K-Dur) 20 meq PO DAILY [facility] Last Admin: 09/15/16 10:06 Dose: 20 meq Senna (Senokot) 17.2 mg PO DAILY PRN PRN Reason: Constipation Sodium Chloride (Normal Saline 10ml Flush) 10 ml IV Q8HR [facility] Last Admin: 09/15/16 08:39 Dose: Not Given Sodium Chloride (Normal Saline 10ml Flush) 10 ml IV PRN PRN Last Admin: 09/13/16 08:13 Dose: 10 ml Warfarin Sodium (Coumadin) 2 mg PO DAILY@1600 [facility] Last Admin: 09/14/16 16:28 Dose: 2 mg - Problems: Assessment/Plan (1) Ileus Status: AcuteAssessment/Plan: Hx colon cancer 1993; partial colon resection. with slow to resolve SBO, some flatus. NG out. Encourage ambulation, continue with clears for now. (2) Over-anticoagulated Status: AcuteAssessment/Plan: Due to warfarin combined with acute illness/not eating. Antibiotics may also contribute. INR 5.8->9.3 -> 2.26->1.23 (09/15) after small Vit K dose Started enoxaparin for atrial fib coverage for now. (3) Pneumonia Qualifiers: Pneumonia type: due to unspecified organism Laterality: left Lung location: lower lobe of lung Qualifier Code: (J18.1) Lobar pneumonia, unspecified organism Status: AcuteAssessment/Plan: On Rocephin, azithromycin. No cultures available. Some dyspnea, some ongoing need for supplemental O2, increased on CXR, check CT chest (4) Aortic valve replaced Status: ChronicAssessment/Plan: Tissue valve, 2011. Auscultation sounds unremarkable today. (5) Atrial fibrillation Qualifiers: Atrial fibrillation type: chronic Qualifier Code: (I48.2) Chronic atrial fibrillation Status: ChronicAssessment/Plan: On warfarin, anticoagulated (was holding warfarin) - consider resumption when taking PO. Rate controlled, (6) Macular degeneration (senile) of retina Status: ChronicAssessment/Plan: with impaired vision. (7) Pancytopenia Status: SuspectedAssessment/Plan: anemia continues, stable from yesterday. Low WBC, platelets stable from yesterday. Not on heparin. VTE Prophylaxis: has been on warfarin, anticipate resumption warfarin when taking PO. anticipate tx dose enoxaparin Mechanical tx Disposition: to be determined; anticipate return to home (with granddaughter), in the next 1- 3 days.
[2016-09-15] MEDS: WARFARIN SODIUM 2 MG TABLET PO SCH (16:03)
[2016-09-15] MEDS ORDERED: ENOXAPARIN SODIUM 80 MG/0.8 ML SYRINGE SUB-Q SCH (16:30)
--- NOTE | 2016-09-15 16:36 | CT ---
Name: NAPOLEON BOOTH Exam: CT chest without contrast Comparison: None Clinical history: Developing pneumonia PROCEDURE: Helical CT using multidetector technique was applied to the chest. No contrast was given per ordering physician. Findings: The heart is enlarged. There is no pericardial effusion. There is heavy calcification of the mitral valve and aortic valve there is heavy calcification of the aorta. In addition to the 3 great vessels, the left vertebral artery arises from the aortic arch which is a normal variant. Limited views the thyroid gland are within normal limits. There are several bilateral subcentimeter calcified axillary lymph node similar to the prior. There are multiple lymph nodes within the mediastinum many of which are calcified. The number of lymph nodes is similar to the prior but several are slightly more prominent which may be reactive in nature. Largest lymph node has a short axis dimension of 14 mm which is similar to the prior. Calcified subcentimeter hilar lymph nodes are identified bilaterally. There is calcification of large airways. Small left and [id number] right bilateral pleural effusions are identified with adjacent compressive atelectasis. Mild scattered infiltrate is noted in all lobes but is most prominent within the left lower lobe. There are changes of emphysema. Very dense diffuse bilateral pleural calcifications are present from prior asbestos exposure. There is a small hiatal hernia. 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 There is a granuloma within normal size spleen. There is very dense vascular calcifications below the diaphragm. Midline sternotomy wires are present. Degenerative disease of both shoulders is present. Impression: 1. Small left and [id number] right bilateral pleural effusions with mild adjacent atelectasis 2. Mild patchy diffuse bilateral pneumonia which is most prominent within the left lung base 3. Emphysema 4. 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 Cardiomegaly with mild vascular congestion 6. Dense diffuse vascular calcification. There is dense valvular calcification is well. 7. Prior granulomatous infection Note: The above report was uploaded to [facility]'s electronic medical records system at 1629 hours.
[2016-09-15] MEDS: ENOXAPARIN SODIUM 80 MG/0.8 ML SYRINGE SUB-Q SCH (18:09)
[2016-09-15] MEDS: MIRTAZAPINE 15 MG TABLET PO SCH (20:50)
[2016-09-16] MEDS: ENOXAPARIN SODIUM 80 MG/0.8 ML SYRINGE SUB-Q SCH (05:09)
[2016-09-16] MEDS: HYDROCODONE BIT/ACETAMINOPHEN 10 MG/325 MG TAB PO PRN (05:09)
[2016-09-16 06:43] LABS: ABSOLUTE NEUTROPHIL COUNT 1.9 K/mm3 (1.8-7.7); BASO % 0.3 % (0.2-1.0); EOS # 0.2 (0.0-0.5); EOS % 5.2 % (0.9-2.9); HEMATOCRIT 30.3 % (32.0-52.0); HEMOGLOBIN 10.2 gm/l (14.0-18.0); IMM NEUT% 0.7 % (0-1); LYMPH # 0.5 (1.0-4.8); LYMPH % 18.1 % (15-45); MEAN CELL VOLUME 100.7 fl (80.0-94.0); MEAN CORPUSCULAR HEMOGLOBIN 33.9 pg (27.0-31.0); MEAN CORPUSCULAR HGB CONC 33.7 g/dl (33.0-37.0); MEAN PLATELET VOLUME 9.6 fl (7.4-10.4); MONO # 0.3 (0.0-0.8); MONO % 10.8 % (4-12); NEUT % 64.9 % (43-75); PLATELET COUNT 109 K/mm3 (130-400); RED CELL DISTRIBUTION WIDTH 15.3 % (11.5-14.5)
[2016-09-16 06:56] LABS: INR 1.2; PROTHROMBIN TIME 12.7 SECONDS (9.3-11.4)
[2016-09-16 07:03] LABS: ALBUMIN 2.9 gm/dL (3.5-5.7); MAGNESIUM 1.9 mg/dL (1.9-2.7)
[2016-09-16] MEDS: FUROSEMIDE 40 MG TABLET PO SCH (08:39)
[2016-09-16] MEDS: DILTIAZEM HCL CD 240 MG CAPSULE PO SCH (08:39)
[2016-09-16] MEDS: POTASSIUM CHLORIDE 20 MEQ TAB.PRT.SR PO SCH (08:43)
[2016-09-16] MEDS: DOCUSATE SODIUM 100 MG CAPSULE PO SCH (08:43)
[2016-09-16] MEDS: CEFTRIAXONE 1 GRAM DUPLEX 1 G in Premix (D5W) 50 ml 1 EACH IV SCH (08:45)
--- NOTE | 2016-09-16 08:57 | PDOC43 ---
- Subjective Chief Complaint: ileus, pneumonia RN reports pt developing appetite, would like to have some peaches, requests advancement of diet. States he feels better, would be interested in going home. - Objective Vital Signs Temperature 97.8 F 09/16/16 07:18 Pulse Rate 65 09/16/16 07:47 Respiratory Rate 18 09/16/16 07:18 Blood Pressure 119/56 09/16/16 07:18 O2 Saturation by Pulse Oximetry 92 09/16/16 07:47 Oxygen Delivery Method Room Air Oxygen Flow Rate 0 Vital Signs Last 12 Hours Temp Pulse Resp BP Pulse Ox 09/16/16 07:47 65 92 09/16/16 07:18 97.8 F 65 18 119/56 95 09/16/16 05:30 97.6 F 65 18 123/55 93 09/15/16 23:56 97.5 F 66 19 116/57 95 09/15/16 19:37 20 09/15/16 19:31 97.7 F 62 20 113/55 94 Intake and Output 09/14/16 09/15/16 09/17/16 23:59 23:59 00:59 Intake Total 3281 3445 500 Output Total 1075 2950 1100 Balance 2206 495 -600 Intake & Output 09/15/16 09/16/16 09/16/16 22:59 07:59 15:59 Intake Total Output Total Balance Weight Intake: PO Intake Output: Void Other: Unmeasured Stool Amount Number of Stools General: Alert, Other (eating breakfast, looking more vigorous today.) Lungs: Clear to Auscultation Bilaterally (fairly good air movement bilat.) Cardiovascular: Regular Rate and Rhythm Abdomen: Soft, Normal Bowel Sounds (quiet, but normal. Eating oatmeal, scrambled eggs.), Non-Distended, No Tenderness, No Rebounding, No Involuntary Guarding Extremities: No Edema Neurological: Normal Speech, Other (impaired vision) Psych/Mental Status: Normal Affect Laboratory 09/16/16 06:00 09/16/16 06:00 09/16/16 06:00 RBC 3.01 L MCV 100.7 H MCH 33.9 H RDW 15.3 H PT 12.7 H Estimated GFR 79 H Calcium 8.0 L Total Bilirubin 1.4 H Total Protein 5.8 L Albumin 2.9 L Current Medications: Current meds reviewed in EMR. Active Medications Acetaminophen (Tylenol) 650 mg CO Q6H PRN PRN Reason: Pain or Temperature > 100.5 F Acetaminophen/Hydrocodone Bitart ([place] 10/325) 1 tab PO TID PRN PRN Reason: .pain Last Admin: 09/16/16 05:09 Dose: 1 tab Benzocaine/Menthol (Cepacol) 1 each PO PRN PRN PRN Reason: Sore Throat Bisacodyl (Dulcolax) 10 mg CO DAILY PRN PRN Reason: Constipation Last Admin: 09/13/16 17:07 Dose: 10 mg Bisacodyl (Dulcolax) 5 mg PO DAILY PRN PRN Reason: Constipation Diltiazem HCl (Cardizem Cd) 240 mg PO DAILY [facility] Last Admin: 09/15/16 09:37 Dose: 240 mg Docusate Sodium (Colace) 100 mg PO BID [facility] Last Admin: 09/15/16 20:50 Dose: 100 mg Enoxaparin Sodium (Lovenox) 70 mg SUB-Q Q12H [facility] Last Admin: 09/16/16 05:09 Dose: 70 mg Furosemide (Lasix) 100 mg PO QAM [facility] Last Admin: 09/15/16 08:48 Dose: 100 mg Sodium Chloride (Sodium Chloride 0.9%) 100 mls @ 25 mls/hr IV PRN PRN PRN Reason: Flush Ceftriaxone Sodium/Dextrose 1 (g/ Premix (D5W) 50 ml) 50 mls @ 100 mls/hr IV Q24H [facility] Last Admin: 09/15/16 09:37 Dose: 100 mls/hr Magnesium Hydroxide (Milk Of Magnesia) 30 ml PO DAILY PRN PRN Reason: Constipation Mirtazapine (Remeron) 15 mg PO BEDTIME [facility] Last Admin: 09/15/16 20:50 Dose: 15 mg Miscellaneous (Coumadin Per Pharmacy) 1 each PO PERPHARMACY [facility] Ondansetron HCl (Zofran) 4 mg IV Q4H PRN PRN Reason: Nausea/Vomiting Last Admin: 09/12/16 19:44 Dose: 4 mg Pantoprazole Sodium (Protonix) 40 mg PO DAILY [facility] Last Admin: 09/15/16 08:47 Dose: 40 mg Petrolatum/Paraffin/Mineral Oil (Blistex) 1 each TP PRN PRN PRN Reason: Dry and/or chapped lips Last Admin: 09/13/16 10:45 Dose: 1 tube Potassium Chloride (K-Dur) 20 meq PO DAILY [facility] Last Admin: 09/15/16 10:06 Dose: 20 meq Senna (Senokot) 17.2 mg PO DAILY PRN PRN Reason: Constipation Sodium Chloride (Normal Saline 10ml Flush) 10 ml IV Q8HR [facility] Last Admin: 09/16/16 00:42 Dose: Not Given Sodium Chloride (Normal Saline 10ml Flush) 10 ml IV PRN PRN Last Admin: 09/13/16 08:13 Dose: 10 ml Warfarin Sodium (Coumadin) 2 mg PO DAILY@1600 [facility] Last Admin: 09/15/16 16:03 Dose: 2 mg - Problems: Assessment/Plan (1) Ileus Status: AcuteAssessment/Plan: Hx colon cancer 1993; partial colon resection. with slowly resolving SBO ; advanced diet Encourage ambulation, he appears to be doing very well today; could consider for DC if continues to do well for lunch, dinner. (2) Over-anticoagulated Status: AcuteAssessment/Plan: Due to warfarin combined with acute illness/not eating. Antibiotics may also contribute. INR 5.8->9.3 -> 2.26->1.23 ->1.2 (09/16) after small Vit K dose and holding warfarin On enoxaparin for atrial fib for now (as we wouldn't know how long he might be NPO), but wouldn't necessarily need to completely bridge pt. (3) Pneumonia Qualifiers: Pneumonia type: due to unspecified organism Laterality: left Lung location: lower lobe of lung Qualifier Code: (J18.1) Lobar pneumonia, unspecified organism Status: AcuteAssessment/Plan: On Rocephin, azithromycin. No cultures available. Some dyspnea, some ongoing need for supplemental O2, increased on CXR, CT chest showed some effusions, some infiltrate, pleural plaquing, but no complex issues or significant worsening (4) Aortic valve replaced Status: ChronicAssessment/Plan: Tissue valve, 2011. Appears stable. (5) Atrial fibrillation Qualifiers: Atrial fibrillation type: chronic Qualifier Code: (I48.2) Chronic atrial fibrillation Status: ChronicAssessment/Plan: Has been on warfarin, anticoagulated (was holding warfarin) - resuming when taking PO. Rate controlled, (6) Macular degeneration (senile) of retina Status: ChronicAssessment/Plan: with impaired vision. (7) Pancytopenia Status: SuspectedAssessment/Plan: anemia continues, improved from yesterday. Low WBC, platelets also modestly improved from yesterday VTE Prophylaxis: has been on warfarin, anticipate resumption warfarin when taking PO. on tx dose enoxaparin Mechanical tx Disposition: to be determined; anticipate return to home (with granddaughter), he could possibly go home later today if continues to do well. Granddaughter would be at home today, but not so much on Saturday (goes to work)
--- NOTE | 2016-09-16 10:51 | RAD ---
Name: NAPOLEON BOOTH Exam: Single view abdomen Comparison: Plain film dated 09/15/[address] dated 09/12/2016 Clinical history: Follow-up small bowel obstruction Findings: Single view of the abdomen is submitted. There is air in stomach small bowel and colon. There are several prominent loops of air-filled small bowel within the abdomen and these are improved. The amount of colonic gas has improved. There is a surgical clip within the right upper quadrant. Dense atherosclerosis is identified. Multilevel degenerative disease of the spine is present Impression: 1. Multiple abnormally dilated loops of air-filled small bowel. The amount of small bowel air has diminished and the amount of colonic air has increased suggesting improvement in the small bowel obstruction/ileus pattern
[2016-09-16 12:32] VITALS: BP 158/85
--- NOTE | 2016-09-16 13:59 | DS ---
NAPOLEON BOOTH [id number] DATE OF ADMISSION: 09/12/2016 DATE OF DISCHARGE: Anticipated 09/16/2016. DISCHARGE DIAGNOSES: 1. Small-bowel obstruction related to postoperative changes. 2. Remote history of right sided partial colectomy for colon cancer. 3. Community acquired pneumonia, presumed bacterial no organism identified. 4. Pleural plaques seen on chest CT. 5. Atrial fibrillation with overanticoagulation, treated with vitamin K. 6. Status post tissue aortic valve replacement. 7. Mild pancytopenia with white blood cell count of 2.9, hemoglobin 10.2, platelets 109, but stable. 8. History of coronary artery disease status post bypass, stable. 9. 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 10. History of chronic essential hypertension. 11. Macular degeneration with blindness. 12. History of peripheral vascular disease. 13. Acute on chronic kidney injury, resolved associated with dehydration. 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 He tried using a suppository, but this was not helpful. His abdominal pain persisted and he presented to the emergency room for further evaluation where CT showed evidence of small-bowel obstruction. He had nasogastric tube placed and was referred to Hospitalist service for admission, and a surgical consultation obtained in the emergency department. HOSPITAL COURSE: On admission, his white count was 4.3, hemoglobin 11.3, and platelets 123. His INR was 5.8, lactate 0.8, sodium 134, potassium 3.8, chloride 98, BUN 51, creatinine 1.5, glucose 127, calcium 8.5, liver enzymes with AST 32, ALT 17, alkaline phosphatase 112, and lipase 11. A urinalysis showed 4 mg/dL of urobilinogen, but was otherwise unremarkable. CT of the abdomen and pelvis had shown small-bowel obstruction without recognized transition zone down to 3.8 cm. Surgical anastomosis between the terminal ileum and the right side of the colon is intact in the right upper quadrant. Incidental findings of cholecystectomy, mitral annular calcification, dilated fluid filled distal esophagus, cholecystectomy, and atrophy of pancreas. Patient also had a chest x-ray done at that time showing some patchy air space disease at the left base worrisome for pneumonia, right sided effusion along with prostatic valve, nasogastric tube, median sternotomy, and pleural plaques. Patient was started on Rocephin, and azithromycin for suspected community acquired pneumonia. Patient had nasogastric tube placed and labs showed continued generally low white blood cell count tipping as low as 2.1 on 09/14/2016. Hemoglobin trended downward somewhat to 9.7 on 09/13/2016, and rebounded to 10.2 by 09/16/2016. Platelet count remained somewhat low between 123 and 99, but improved to 109 on 09/16/2016. On 09/13/2016 his INR increased from 5.8 on admission to 9.38 although he was not having any significant bleeding a concern for ongoing nothing by mouth status. Antibiotic use prompted use of vitamin K, and he received 5 mg subcutaneous times one. His INR corrected fairly rapidly going to 2.26 by 09/14/2016 and was 1.2 on 09/16/2016. He did receive some enoxaparin for correction on 09/15/2016 and 09/16/2016, although it was not anticipated bridged longer term because of his anticoagulation being only for atrial fibrillation. He received IV fluid and was made nothing by mouth. His creatinine improved from 1.5 to 0.9. By 09/14/2016, his nasogastric tube output had decreased, and the tube was clamped. It was able to be removed by the afternoon of 09/14/2016. He was started on a clear liquid diet, and tolerated this although did not take an appreciable amount of food. Patient remained on 2 L of oxygen during most of the hospitalization, but was saturating 92% on room air by the morning of 09/16/2016. The patient remained afebrile after 09/13/2016 having a temperature max of 100. His blood pressure remained stable and his pulse while tachycardiac on admission generally stayed in the 60s for the last several days. Patient had a follow up chest CT on 09/15/2016 due to some ongoing cough which showed small left and mild to moderate right bilateral pleural effusions with mild adjacent atelectasis, mild patchy diffuse bilateral pneumonia most prominent in the left lung base. Emphysema marked bilateral calcified pleural plaque compatible with prior asbestos exposure, cardiomegaly with mild vascular congestion. Dense diffuse vascular calcification and dense valvular calcification, and prior granulomatous infection. His abdominal x-ray showed slight improvement by 09/15/2016. By the evening of 09/15/2016, he reported feeling hungry again and on the morning of 09/16/2016 his diet was advanced and he ate remarkably well. He continued to feel well, and is anticipate to be discharged the afternoon of 09/16/2016 if not having any worsening of status. DISCHARGE MEDICATIONS: His discharge medications are anticipated to be: 1. Ceftin 500 mg by mouth twice a day. 2. Vitamin B12 at 1000 mcg daily. 3. Diltiazem ER 240 mg by mouth daily. 4. Docusate 100 mg by mouth twice a day. 5. Furosemide 100 mg by mouth every morning. 6. [place] 10/325 one by mouth three times a day. 7. Remeron 15 mg at bedtime. 8. Multivitamin 1 by mouth daily. 9. Omeprazole 20 mg daily. 10. Potassium chloride 20 mEq by mouth daily. 11. Senna 2 tablets by mouth every day as needed. 12. Warfarin to resume his previous dose which is 4.5 mg daily. DISCHARGE FOLLOW-UP: He is asked to follow up with [facility] regarding anticoagulation clinic early this next week, and to follow up with Carolee Allen on 09/20/2016 at 9:50 a.m. for follow up on bowel obstruction and pneumonia. DISCHARGE DIET: As tolerated. ACTIVITY: As tolerated. KVNG/ghassan cc: Carolee Allen MD
[2016-09-16] MEDS ORDERED: WARFARIN SODIUM 5 MG TABLET PO ONE (16:00)
== END 2016-09-16 14:50 | disposition home or self-care (01) | DRG 388 ==
LOC: ED 10:40 → MS 14:58
PROVIDERS: ADMIT Family Medicine; ATTEND Family Medicine
DX: K56.60 Unspecified intestinal obstruction (principal); J15.9 Unspecified bacterial pneumonia; D61.818 Other pancytopenia; J90 Pleural effusion, not elsewhere classified; J92.9 Pleural plaque without asbestos; I48.91 Unspecified atrial fibrillation; Z79.01 Long term (current) use of anticoagulants; I25.10 Atherosclerotic heart disease of native coronary artery without angina pectoris; Z98.61 Coronary angioplasty status; K21.9 Gastro-esophageal reflux disease without esophagitis; I10 Essential (primary) hypertension; H35.30 Unspecified macular degeneration; H54.0 Blindness, both eyes; I73.9 Peripheral vascular disease, unspecified; T45.511A Poisoning by anticoagulants, accidental (unintentional), initial encounter; Y92.239 Unspecified place in hospital as the place of occurrence of the external cause; K56.7 Ileus, unspecified; M47.9 Spondylosis, unspecified; J43.9 Emphysema, unspecified; I51.7 Cardiomegaly

== ENCOUNTER 2016-09-22 13:03 | Emergency (ER) | payer MEDICARE, OTHER ==
[2016-09-22 13:27] LABS: SPECIFIC GRAVITY 1.015 (1.001-1.030); URINE BILIRUBIN NEGATIVE (NEGATIVE); URINE BLOOD NEGATIVE (NEGATIVE); URINE GLUCOSE (UA) NEGATIVE (NEGATIVE); URINE LEUKOCYTE ESTERASE NEGATIVE (NEGATIVE); URINE NITRITE NEGATIVE (NEGATIVE); URINE PROTEIN NEGATIVE (NEGATIVE); URINE UROBILINOGEN NORMAL (0-1 mg/dl)
[2016-09-22 13:28] LABS: URINE APPEARANCE CLEAR; URINE COLOR LIGHT YELLOW
[2016-09-22] MEDS ORDERED: SODIUM CHLORIDE 0.9% 1,000 ML ONE (15:29)
[2016-09-22 15:57] LABS: ABSOLUTE NEUTROPHIL COUNT 4.1 K/mm3 (1.8-7.7); BASO % 0.4 % (0.2-1.0); EOS # 0.1 (0.0-0.5); EOS % 1.6 % (0.9-2.9); IMM NEUT% 0.8 % (0-1); LYMPH # 0.6 (1.0-4.8); LYMPH % 11.5 % (15-45); MEAN CORPUSCULAR HEMOGLOBIN 33.3 pg (27.0-31.0); MEAN CORPUSCULAR HGB CONC 33.3 g/dl (33.0-37.0); MEAN PLATELET VOLUME 8.9 fl (7.4-10.4); MONO # 0.3 (0.0-0.8); MONO % 5.5 % (4-12); NEUT % 80.2 % (43-75); PLATELET COUNT 189 K/mm3 (130-400); RED CELL DISTRIBUTION WIDTH 15.2 % (11.5-14.5)
[2016-09-22 16:12] LABS: ALBUMIN 3.9 gm/dL (3.5-5.7); CALCIUM 9.3 mg/dL (8.6-10.3); INR 1.37; PROTHROMBIN TIME 14.6 SECONDS (9.3-11.4)
--- NOTE | 2016-09-22 16:26 | RAD ---
Exam: Two-view chest COMPARISON: Radiographs 09/14/2016, 02/13/[address] 09/15/2016 INDICATION: Weakness. FINDINGS: PA and lateral views of the chest were obtained. Postsurgical changes of median sternotomy and valve replacement are again appreciated. Mild cardiomegaly is similar. Lung volumes remain low, with calcified pleural plaques. There is persistent blunting of the costophrenic angles, right greater than left, compatible with residual pleural effusions which were seen on last week's exams. IMPRESSION: No acute pulmonary process. Stable small pleural effusions, right greater than left.
[2016-09-22] MEDS ORDERED: PHENAZOPYRIDINE HCL 200 MG TABLET ONE (16:41)
== END 2016-09-22 17:37 | disposition home or self-care (01) ==
LOC: ED 13:03
DX: R53.1 Weakness (principal); R53.83 Other fatigue; I11.0 Hypertensive heart disease with heart failure; I50.9 Heart failure, unspecified; R35.0 Frequency of micturition; Z79.01 Long term (current) use of anticoagulants
CPT/HCPCS: 83605; 85025; 87040; 80053; 85610; 81003; 71020; 87804; 99284; 99283; A9270; J7030

== ENCOUNTER 2016-10-20 16:40 | Observation (INO) | payer MEDICARE, OTHER ==
[2016-10-20] MEDS ORDERED: IOPAMIDOL 370 (76%) IV.SOLN 150 ML IV ONE (16:41)
[2016-10-20 17:26] LABS: BASO % 0.2 % (0.2-1.0); EOS # 0.1 (0.0-0.5); EOS % 1.7 % (0.9-2.9); HEMATOCRIT 34.1 % (32.0-52.0); HEMOGLOBIN 11.1 gm/l (14.0-18.0); IMM NEUT% 0.2 % (0-1); LYMPH # 0.3 (1.0-4.8); MEAN CELL VOLUME 100.9 fl (80.0-94.0); MEAN CORPUSCULAR HEMOGLOBIN 32.8 pg (27.0-31.0); MEAN CORPUSCULAR HGB CONC 32.6 g/dl (33.0-37.0); MEAN PLATELET VOLUME 9.8 fl (7.4-10.4); MONO # 0.3 (0.0-0.8); MONO % 5.6 % (4-12); NEUT % 86.3 % (43-75); PLATELET COUNT 136 K/mm3 (130-400); RED CELL DISTRIBUTION WIDTH 14.3 % (11.5-14.5)
[2016-10-20 17:35] LABS: INR 2.25; PARTIAL THROMBOPLASTIN TIME 27.1 SECONDS (24.5-33.0); PROTHROMBIN TIME 24.7 SECONDS (9.3-11.4)
[2016-10-20] MEDS ORDERED: SODIUM CHLORIDE 0.9% 500 ML ONE (19:18)
--- NOTE | 2016-10-20 19:33 | RAD ---
ABDOMEN FLAT AND UPRIGHT COMPARISON: Abdomen one view, 09/16/2016 HISTORY: Lower abdominal pain. FINDINGS: Views: Abdomen upright and supine. Lung bases: Bilateral fibrotic changes on the right, a pleural effusion mild to moderate pleural effusion. Free air: None Bowel gas pattern: Normal Organomegaly: None Soft tissue calcification: Vascular. Bones: Degenerative changes spine. Surgical clips: Right upper quadrant. IMPRESSION: 1. No evidence of obstruction or perforation. 2. Gastric calcification. 3. Cholecystectomy clips. 4. Fibrotic changes both lungs. Mild to moderate right pleural effusion.
[2016-10-20] MEDS ORDERED: HYDROCODONE/ACETAMINOPHEN 5/325MG TABLET ONE (20:03)
[2016-10-20] MEDS ORDERED: MENTHOL/CETYLPYRD 1 EACH LOZENGE PO PRN (22:28)
[2016-10-20] MEDS ORDERED: SODIUM CHLORIDE 0.9% 100 ML IV PRN (22:28)
[2016-10-20] MEDS ORDERED: BISACODYL 5 MG TABLET.EC PO PRN (22:28)
[2016-10-20] MEDS ORDERED: BLISTEX LIPSTICK 1 EACH TP PRN (22:28)
[2016-10-20] MEDS ORDERED: MAGNESIUM HYDROXIDE 30 ML UDCUP PO PRN (22:28)
[2016-10-20] MEDS ORDERED: BISACODYL 10 MG SUP PR PRN (22:28)
[2016-10-20] MEDS ORDERED: ACETAMINOPHEN 325 MG TABLET PO PRN (22:28)
[2016-10-20 22:44] VITALS: BMI 20.8
[2016-10-20] MEDS ORDERED: PUMP TUBING ONE (22:50)
[2016-10-20] MEDS ORDERED: SENNOSIDES 8.6 MG TABLET PO SCH (23:00)
[2016-10-20] MEDS ORDERED: POLYETHYLENE GLYCOL 3350 17 G POWD.SUSP PO SCH (23:00)
[2016-10-20] MEDS ORDERED: IV START KIT ONE (23:28)
[2016-10-20] MEDS ORDERED: SODIUM CHLORIDE 0.9% FLUSH 10 ML ONE (23:28)
[2016-10-20] MEDS: NS/Potassium Chlor 20 mEq 1,000 ML IV SCH (23:38)
[2016-10-20] MEDS ORDERED: MIRTAZAPINE 15 MG TABLET PO SCH (23:45)
[2016-10-20] MEDS ORDERED: ZOLPIDEM TARTRATE 5 MG TABLET PO PRN (23:49)
[2016-10-20] MEDS ORDERED: SENNOSIDES 8.6 MG TABLET PO PRN (23:49)
[2016-10-21 06:17] LABS: ABSOLUTE NEUTROPHIL COUNT 2.5 K/mm3 (1.8-7.7); BASO % 0.3 % (0.2-1.0); EOS # 0.1 (0.0-0.5); EOS % 3.5 % (0.9-2.9); HEMOGLOBIN 9.8 gm/l (14.0-18.0); IMM NEUT% 0.5 % (0-1); LYMPH # 0.6 (1.0-4.8); LYMPH % 16.5 % (15-45); MEAN CORPUSCULAR HEMOGLOBIN 32.3 pg (27.0-31.0); MEAN CORPUSCULAR HGB CONC 32.7 g/dl (33.0-37.0); MEAN PLATELET VOLUME 10.4 fl (7.4-10.4); MONO # 0.4 (0.0-0.8); MONO % 11.4 % (4-12); NEUT % 67.8 % (43-75); PLATELET COUNT 114 K/mm3 (130-400); RED CELL DISTRIBUTION WIDTH 14.2 % (11.5-14.5)
[2016-10-21 06:38] LABS: INR 2.62
[2016-10-21 06:40] LABS: CALCIUM 8.3 mg/dL (8.6-10.3)
--- NOTE | 2016-10-21 08:07 | CT ---
ABD/PELVIS W/ CON COMPARISON: Abdomen 2 views, 10/20/2016. CT abdomen and pelvis with contrast 09/12/2016 HISTORY: Abdominal pain in a patient with history of colon cancer and small bowel obstruction. Technique: No oral contrast. Intravenous injection 125 mL Isovue 370. Using a [employer] [address] scanner, images were obtained from the diaphragm to the floor the pelvis. An automated dose reduction technique was used to minimize patient radiation dose. Dose information: CTDIvol (mGy): 7.80 DLP(mGycm): 364.50 FINDINGS: Lung bases: No change. Atelectasis with air bronchograms, medial base of the right lower lobe. Right pleural plaques and loculated mild effusion. Left pleural plaque without associated effusion. Inferior mediastinum and heart: No acute finding. Mitral annular calcification and hiatal hernia. Liver: Portal venous air in the left lobe. Gallbladder: Cholecystectomy. Bile ducts: No change. Dilated 15 mm. Pancreas: Atrophy. Spleen: Normal. Adrenal glands: Normal. Kidneys: Normal. Ureters: Normal Urinary bladder: Normal. Prostate gland and seminal vesicles: Normal. Blood vessels: Severe atherosclerosis throughout the abdomen and the pelvis. Lymph nodes: Normal Stomach: Normal Duodenum: Normal Small intestine: Thickening of the wall of the ileum. Appendix: Removed. Colon: Right hemicolectomy. Abdominal wall and supporting musculature: Normal Bones: No acute finding. Degenerative changes. IMPRESSION: 1. Ischemic enteritis involving the neoterminal ileum associated with portal venous gas in the left lobe of the liver. 2. Status post right hemicolectomy. 3. Incidental findings include chronic loculated right mild pleural effusion associated with bilateral pleural calcified plaques, mitral annular calcification, cholecystectomy, pancreas atrophy, postcholecystectomy common bile duct dilation, severe atherosclerosis of the abdomen and pelvis, and degenerative changes of the spine. Preliminary report by [facility] radiologist Forest Kim MD 10/20/2016 at 20:16
[2016-10-21] MEDS ORDERED: DOCUSATE SODIUM 100 MG CAPSULE PO SCH ×2 (09:00)
[2016-10-21] MEDS ORDERED: OMEPRAZOLE 20 MG CAPSULE.DR PO SCH (09:00)
[2016-10-21] MEDS ORDERED: PANTOPRAZOLE 40 MG TABLET DR PO SCH (09:00)
[2016-10-21] MEDS ORDERED: PNEUMOCOCCAL 23-VAL P-SAC VAC 0.5 ML VIAL IM V ONE (09:00)
[2016-10-21] MEDS ORDERED: POTASSIUM CHLORIDE 10 MEQ TAB.SR PO SCH (09:00)
[2016-10-21] MEDS ORDERED: DILTIAZEM HCL CD 120 MG CAPSULE PO SCH (09:00)
[2016-10-21] MEDS: NS/Potassium Chlor 20 mEq 1,000 ML IV SCH (10:37)
--- NOTE | 2016-10-21 13:08 | PDOC5 ---
ADMIT DATE: 10/20/16 DISCHARGE DATE: 10/21/16 ADMISSION DIAGNOSES: Possible Small Bowel Obstruction, subsequently ruled out Ischemic Enteritis Constipation, Opioid Induced Macrocytic Anemia, Chronic Chronic, Intermittent, Pancytopenia History of cirrhosis History of CAD GERD History of SBO DISCHARGE DIAGNOSIS: Opioid Induced Constipation, resolved Chronic opioid use Chronic Pain Macrocytic Anemia Chronic Intermittent Pancytopenia PROCEDURES PERFORMED THIS HOSPITALIZATION: CT Abdomen CONSULTATIONS: None HOSPITAL COURSE: This is a 89 year old with a pertinent history of prior abdominal surgeries, prior bowel obstruction, chronic opioid use with associated constipation and vascular disease who presented with abdominal pain and cramping. Given PMH at CT abd was performed and showed no evidence of obstruction but did have a moderate stool burden and suggested ischemic enteritis. However, a serum lactate was normal and all of his symptoms resolved with laxative administration and the production of four bowel movements , after which he tolerated a regular diet for several meals and was therefore released to return home. His sister stated this episode corresponded with him needing more of his Vicodin recently and "this happens everytime". I increased his colace to TID, changed his Senna to QHS scheduled and added PO Dulcolax with instructions to take if no BM in 24hrs. I also reviewed this plan with his sister. Also noted during his stay was hemoconcentration, mild dehydration on admission and chronic diuretic therapy. This will need to continue to be monitored. In addition, his laboratory records here indicate intermittent, chronic pancytopenia with macrocytosis, a picture most consistent with myelodysplasia but it is not clear from inpatient chart whether he carries this as an actual diagnosis. His cytopenias are currently in line with his general baselines from prior stays and no intervention or additional studies were performed. - Exam Vital Signs Temperature 97.8 F 10/21/16 07:41 Pulse Rate 63 10/21/16 07:41 Respiratory Rate 12 10/21/16 07:41 Blood Pressure 113/54 10/21/16 07:41 O2 Saturation by Pulse Oximetry 97 10/21/16 07:41 Oxygen Delivery Method Room Air Oxygen Flow Rate 0 General: Alert, Cooperative, No Acute Distress HEENT: Atraumatic, Mucous membr. moist/pink Lungs: Diminished at Bases Cardiovascular: Irregular, Murmur, No JVD Abdomen: Soft, Non-Distended, No Tenderness Extremities: Pulses Diminished but Palpable, No Edema Neurological: Normal Speech Psych/Mental Status: Normal Affect, Normal Mood - Results Laboratory 10/21/16 05:30 10/21/16 05:30 10/21/16 05:30 RBC 3.03 L MCV 99.0 H MCH 32.3 H MCHC 32.7 L PT 29.0 H BUN 33 H Calcium 8.3 L - Disposition: Disposition: Home with family - Discharge Plan Instruction Forms: Warfarin Therapy Education Additional Instructions: Bowel regimen adjusted and prescriptions updated Prescriptions: Bisacodyl [DULCOLAX 5 MG TABLET (SHF)] 5 mg PO DAILY PRN #30 PRN Reason: Constipation Follow-Up: Valentine Romero MD [Primary Care Provider] -
--- NOTE | 2016-10-21 13:43 | HP ---
NAPOLEON BOOTH [id number] CHIEF COMPLAINT: Abdominal pain. HISTORY OF PRESENT ILLNESS: The patient is an 89-year-old male who presented with complaints of periumbilical pain which began this afternoon around 1 o'clock. The pain was in the periumbilical area without radiation up to a 10/10 in severity. It lasted for an hour and a half or longer, and he eventually called [facility] for transport to the emergency department for further evaluation. He reports that he has been constipated. He did have a bowel movement this morning, but felt like he had more to go and gave himself an enema. Shortly after the enema, the pain began. He did have another bowel movement after the enema, but the pain was persistent. However, by the time he arrived in the emergency department, his umbilical pain had resolved, but then he complained of a headache. Work up in the emergency department included a CT of the abdomen and pelvis. This showed a moderate fecal load within the colon, evidence of a previous right hemicolectomy, and some thickening of the distal ileum concerning for possible ischemic enteritis. No mural gas, or free air was seen. No bowel dilatation was seen, or air fluid levels were noted. He has not had any nausea or vomiting, and denies any fevers, or chills. He had a surgical consultation in the emergency department and was not felt to have a surgical problem. REVIEW OF SYSTEMS: His review of systems is negative for fatigue, fevers, or chills. He has had no recent upper respiratory symptoms. He denies cough, dyspnea, wheezing, shortness of breath, chest pain, or palpitations. No nausea or vomiting. No diarrhea, but he has had some constipation as mentioned above and the periumbilical abdominal pain as mentioned above. He does suffer from chronic low back pain. he denies any new arthralgias. He complains of frequent headaches, and is complaining of one now. He denies any fainting, blackouts, or seizures. He has had no vertigo. No neurological deficits. No urinary complaints. Review of systems is otherwise negative. PAST MEDICAL HISTORY: Is significant for: 1. Hospitalization in September in for a partial small-bowel obstruction. His stay was complicated by pneumonia. 2. He has a history of colon cancer in the past and is status post right hemicolectomy that was back in 1993. 3. He has had a history of small-bowel obstructions in the past. 4. He has a history of peripheral vascular disease. 5. He has a history of coronary artery disease, and is status post a bypass graft without angina. 6. 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 7. He has chronic atrial fibrillation on Coumadin. 8. He has had a history of gastroesophageal reflux disease with Cole's metaplasia. 9. Chronic essential hypertension. 10. Alcoholism in remission since 2001. 11. Lumbar spondylosis with chronic pain. 12. Asbestosis. 13. Macular degeneration with blindness. 14. Migraine headaches. PAST SURGICAL HISTORY: Is significant for: 1. Right hemicolectomy in 1993. 2. He had cataract surgery in 1996. 3. Aortic valve replacement with a tissue valve in 2011 along with a 2 vessel coronary artery bypass graft. 4. Tonsillectomy and adenoidectomy as a child. 5. Appendectomy performed years ago. 6. Vasectomy. 7. Janis fundoplication in 2011. 8. Open cholecystectomy in 2014. ALLERGIES: HE HAS NO KNOWN DRUG ALLERGIES. CURRENT MEDICATIONS: Consist of: 1. Ambien 10 mg at bedtime as needed for sleep. 2. Diltiazem extended release 120 mg daily. 3. Vitamin B12 at 1000 mcg by mouth daily. 4. Colace 100 mg by mouth twice a day. 5. Remeron 15 mg at bedtime. 6. Stanton 10/325 one pill up to 3 times daily as needed for pain. 7. Lasix 100 mg every morning. 8. Senna 1 to 2 tablets daily as needed for constipation. 9. Potassium chloride 20 mEq daily. 10. Warfarin 4.5 mg daily. FAMILY HISTORY: Family history is positive for diabetes in the family. SOCIAL HISTORY: He is a former smoker of about 50 pack years, but quit 20 years ago. He used to be an alcoholic, but quit in 2001. He is . 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 He lives with is daughter. PRIMARY CARE PROVIDER: Carolee Allen, physician assistant pastry chef. PHYSICAL EXAMINATION: VITAL SIGNS: Temperature is 98. Pulse is 69. Blood pressure is 151/67. Respirations are 18. Oxygen saturation is 96% on room air. Body mass index is 20.8. Weight is 64 kilograms. GENERAL: This is an elderly male in acute distress. HEENT: Exam is unremarkable. NECK: Supple without lymphadenopathy or thyromegaly. CHEST: Lungs are clear to auscultation bilaterally. CARDIOVASCULAR: Exam reveals an irregular rhythm without a murmur. ABDOMEN: Soft, nontender, nondistended with positive bowel sounds. EXTREMITIES: Show no peripheral edema. DIAGNOSTIC IMAGING: Results of the CT of the abdomen and pelvis were as noted above. A 12-lead electrocardiogram shows atrial flutter/tachycardia with a marked left axis deviation. There is also evidence of a right bundle branch block. Abdominal x-ray shows no acute findings. He does have a persistent mild to moderate right pleural effusion with fibrotic changes in both lungs. LABORATORY STUDIES: He had a CBC showing a white count of 4.6, hemoglobin 11.1, and a platelet count of 136,000. INR is therapeutic at 2.25. Lactate is 1.8. Chemistry profile shows sodium 134, potassium 3.4, BUN 40, creatinine 1.3, glucose 147. Magnesium level is pending. Liver function tests are normal. ASSESSMENT: The patient has periumbilical abdominal pain with evidence of enteritis on CT possible ischemic enteritis. He has evidence of constipation on the CT scan as well. He has chronic atrial fibrillation stable and anticoagulation on Coumadin. Coronary artery disease without angina. Chronic essential hypertension which stable. Gastroesophageal reflux disease which is stable. Frequent migraine headaches which are stable. Macular degeneration which is stable causing blindness and history of aortic valve replacement which is stable. He has chronic back pain with chronic opioid use which is likely contributing to his constipation. PLAN: Plan is for observation overnight. He will be gently hydrated. I suspect he is slightly dehydrated as his creatinine is up to 1.3. His baseline creatinine is around 0.9. He will be given Senna, MiraLax, and Colace, and magnesium replacement if indicated. I anticipate probably discharge tomorrow if he is doing well. He is given clear liquids tonight and advance diet as tolerated tomorrow. EREN/ghassan cc: Carolee Allen, nurse practitioner
[2016-10-21 14:41] VITALS: BP 111/50
[2016-10-21] MEDS ORDERED: WARFARIN SODIUM 1 MG TABLET PO SCH (16:00)
--- NOTE | 2016-10-22 06:29 | CONS ---
[facility] CONSULTATION DATE OF CONSULT: October 20, 2016 HISTORY OF PRESENT ILLNESS: I had the pleasure of seeing Mr. Vitale today in the emergency department. He is an 89-year-old gentleman with a previous history of right hemicolectomy. This is a remote surgery. He has also had a past history of cholecystectomy and stated that he has had an upper endoscopy although he is unsure if an endoscopic retrograde cholangiopancreatography was performed at the time of the endoscopy. I was consulted due to the possibility of portal venous gas and thickening of the bang-terminal ileum suggestive of ischemic bowel with portal venous gas related to aggressive infection. Mr. Vitale's abdomen is soft on exam. His vitals are stable. He has a normal white count. He has slight abnormalities in electrolytes but has no evidence of aggressive infection and/or ischemia consistent with portal venous gas. I reviewed the axial imaging for Mr. Vitale. He has a CAT scan performed this evening which demonstrates excellent portal venous phase with contrast within the portal vein extending to the entire right lobe of the liver without any evidence of any gas in the right lobe. Within the left lobe, there is obvious dilatation of the periportal structure around the portal vein but there is no evidence of portal venous gas. He does have a number of dilated structures within the left lobe of the liver consistent with biliary structures which may contain gas. Based on my read of the October 20, 2016 CAT scan, it is difficult to determine whether or not the air is within the portal venous system or the biliary system although my belief is that the patient's characteristics on imaging, I suspect it is in the biliary tree. I did have the luxury of reviewing a 2015 CAT scan from October 02, 2014, which again demonstrates excellent portal venous contrast and again portal venous contrast demonstrating flow into the left lobe of the liver with a similar periportal hypodensity and a number of small areas of gas within the left lobe of the liver consistent with the findings on the CAT scan from today. Based on the chronicity of the finding of gas within the left lobe of the liver dating back to 2014, I suspect that this is not portal venous gas and is in fact gas within the biliary tree possibly related to a previous endoscopic retrograde cholangiopancreatography. This also fits clinically with the condition of Mr. Vitale today. He does not appear to be presenting with bowel consistent with portal venous gas. He does have some edematous loops of small bowel in the region of the previous anastomosis. The small bowel is thickened over approximately two to three feet down into the right lower quadrant. There is no evidence of perforation and nathaniel-bowel fluid. The anastomosis appears to be patent with significant fluid within the colon as well as stool. ASSESSMENT AND PLAN: Mr. Vitale does not appear to have portal venous gas. I suspect he has biliary tree gas with some edematous small bowel in the region of the anastomosis with evidence of stool and fluid throughout the entire remaining portion of the colon suggesting a diagnosis of constipation. I would be happy to see Mr. Vitale in the emergency department or on the floor if he has any additional concerns or develops any evidence of worsening abdominal pain.
== END 2016-10-21 16:00 | disposition home or self-care (01) ==
LOC: ED 16:40 → MS 21:37
PROVIDERS: ADMIT Family Medicine; ATTEND Family Medicine
DX: K59.00 Constipation, unspecified (principal); I48.91 Unspecified atrial fibrillation; Z79.01 Long term (current) use of anticoagulants; K21.9 Gastro-esophageal reflux disease without esophagitis; Z79.891 Long term (current) use of opiate analgesic
CPT/HCPCS: 83605; 85025 ×2; 80048; 80053; 83735; 85730; 85610 ×2; 36415; 74020; 74177; 97165; 99285 ×2; 96360; 96361; 93005; A9270 ×11; J7040; Q9967; G8987; G8988; G8989